=== PATIENT | male | born 1985 | race Caucasian/White ===

== ENCOUNTER 2018-05-30 15:14 | Emergency (ER) | payer OTHER ==
[~2018-05-30] VITALS: Ht 175.3 cm; Wt 88.5 kg
== END 2018-05-30 19:30 | disposition home or self-care (01) ==
LOC: ER 15:14
DX: S86.811A Strain of other muscle(s) and tendon(s) at lower leg level, right leg, initial encounter (principal); S83.511A Sprain of anterior cruciate ligament of right knee, initial encounter; X50.0XXA Overexertion from strenuous movement or load, initial encounter; Y93.89 Activity, other specified; Y92.69 Other specified industrial and construction area as the place of occurrence of the external cause; Y99.8 Other external cause status

== ENCOUNTER 2018-06-02 13:42 | Outpatient (CLI) | payer OTHER | END 2018-06-02 13:50 | disposition home or self-care (01) | LOC: MRI 13:42 | DX: S83.511A Sprain of anterior cruciate ligament of right knee, initial encounter (principal); S86.911A Strain of unspecified muscle(s) and tendon(s) at lower leg level, right leg, initial encounter | CPT/HCPCS: 73722; A9579 ==